=== PATIENT | female | born 1945 | race African-American/Black ===

== ENCOUNTER 2021-06-28 12:22 | Emergency (ER) | payer OTHER ==
[~2021-06-28] VITALS: Ht 165.1 cm; Wt 74.8 kg
[2021-06-28] MEDS ORDERED: NAPROSYN500 MG PO (14:41)
[2021-06-28] MEDS ORDERED: FLEXERIL PO (14:41)
[2021-06-28 15:06] VITALS: BP 123/81
== END 2021-06-28 16:23 | disposition home or self-care (01) ==
LOC: ER 12:22
DX: M54.50 Low back pain, unspecified (principal); M81.0 Age-related osteoporosis without current pathological fracture; Z98.890 Other specified postprocedural states